=== PATIENT | female | born 1975 | race African-American/Black ===

== ENCOUNTER 2016-06-16 17:46 | Inpatient (IN) | payer OTHER ==
[~2016-06-16] VITALS: Ht 177.8 cm; Wt 167.7 kg
[~2016-06-16 17:46] MED LIST: ALDACTONE 25MG25 M1 PO; CARVEDILOL; CEPHALEXIN500 M1 PO; FEOSOL65 MG PO; FERRATE325 MG PO; HCTZ 25MG TAB25 MG PO; HCTZ 25MG25 MG PO; LASIX 20MG TABL20 MG PO; LOPRESSOR 550 MG/TAB PO; LORTAB 5/500 501 TAB PO; LORTAB 7.5/5001 TAB PO; MICARDIS HCT 251 TAB PO; MICARDIS40 MG PO; MICARDIS80 MG PO; NAPROSYN500 MG PO; NO HOME MEDICATIONS; NORCO 325 MG-51 TAB PO; NORVASC 5MG5 MG/TAB PO; PHENERGAN W/CO120 ML PO; SAXENDA6 MG/ML SQ; SUDAFED30 MG PO; SYNTHROID0.05 MG/TA PO; TUSS PO; VICODIN 5/5001 UDTAB PO; XOPENEX HF0.045 MG/A IH; ZITHROMAX 250M250 MG PO; ZITHROMAX Z PA250 MG PO
[2016-06-16] MEDS ORDERED: MULTIPLE VITAMI1 CAP PO (18:03)
[2016-06-16] MEDS ORDERED: NORCO 325 MG-7.1 TAB PO (18:04)
[2016-06-16 20:22] LABS: BASO # 0.1 (0.0-0.2); BASO % 0.4 % (0.0-2.0); EOS # 0.3 (0.0-0.7); EOS % 1.9 % (0-4.0); GRAN % 68.2 % (42.2-75.2); LYMPH # 2.7 (1.2-3.4); LYMPH % 20.6 % (20.0-51.0); MEAN CELL VOLUME 81 fl (80.0-100.0); MEAN CORPUSCULAR HGB CONC 33 g/dl (33.0-37.0); MONO # 1.1 (0.1-0.6); MONO % 8.6 % (1.7-9.3); PLATELET COUNT 368 K/mm3 (130-400); RED BLOOD COUNT 4.04 M/mm3 (4.10-5.30); REDCELL DISTRIBUTION WIDTH-CV 13.6 % (11.5-14.5); WHITE BLOOD COUNT 13.2 K/mm3 (4.8-10.8)
[2016-06-16 20:27] LABS: PH 5 (5-8); SQUAMOUS EPITHELIAL 20-50 /hpf; URINE APPEARANCE Cloudy; URINE BACTERIA Rare /hpf; URINE BILIRUBIN Negative (NEGATIVE); URINE BLOOD 3+ (NEGATIVE); URINE COLOR Amber; URINE GLUCOSE Negative (NEGATIVE); URINE KETONE Trace (NEGATIVE); URINE RBC 20-50 /hpf; URINE UROBILINOGEN Negative (NEGATIVE)
[2016-06-16 20:31] LABS: HEMATOCRIT 32.7 % (37.0-47.0); HEMOGLOBIN 10.8 g/dl (12.5-16.0); MEAN CORPUSCULAR HEMOGLOBIN 27 pg (27.0-31.0)
[2016-06-16 20:36] LABS: ADJUSTED CALCIUM 9.9 mg/dL (8.4-10.2); ALANINE AMINOTRANSFERASE 46 U/L (9-52); ALBUMIN 4.2 gm/dL (3.5-5.0); ALKALINE PHOSPHATASE 161 U/L (50-136); ANION GAP 15 mmol/L (7-16); BILIRUBIN,TOTAL 0.9 mg/dL (0.0-1.0); BLOOD UREA NITROGEN 20 mg/dL (7-17); CALCIUM 10.1 mg/dL (8.4-10.2); CARBON DIOXIDE 24 mmol/L (22-30); CHLORIDE 98 mmol/L (98-107); CREATININE, serum 1.33 mg/dL (0.52-1.25); GLUCOSE 108 mg/dL (74-106); SODIUM 136 mmol/L (137-145); TOTAL PROTEIN 8.9 gm/dL (6.4-8.2)
[2016-06-16 20:51] LABS: TROPONIN-I < 0.012 ng/mL (0.000-0.034)
[2016-06-16 21:35] LABS: C-REACTIVE PROTEIN 18.2 mg/dL (0.0-0.9)
[2016-06-16 23:30] VITALS: BP 128/56; PULSE 85; TEMP 98.5
[2016-06-17 05:55] VITALS: BP 109/52; PULSE 91; TEMP 98.3
[2016-06-17 09:13] VITALS: BP 107/52; PULSE 89; TEMP 98.5
[2016-06-17 13:17] VITALS: BP 97/40; PULSE 70; TEMP 97.9
[2016-08-05] MEDS ORDERED: BIOTIN10000 MC1 PO (15:55)
[2016-08-05] MEDS ORDERED: VITAMIN D31000 IU PO (15:56)
[2016-12-23] MEDS ORDERED: SYNTHROID0.05 MG/TA PO (16:11)
== END 2016-06-17 19:00 | disposition home or self-care (01) | DRG 392 ==
LOC: COL.ER 17:46 → SURG 22:17
PROVIDERS: Emergency Medicine
DX: R10.12 Left upper quadrant pain (principal); Z68.43 Body mass index [BMI] 50.0-59.9, adult; E66.01 Morbid (severe) obesity due to excess calories; Z98.84 Bariatric surgery status; I10 Essential (primary) hypertension; R11.2 Nausea with vomiting, unspecified
CPT/HCPCS: J1170; J1650; J1885; J2405; J2543; J7030; J7050; Q9967

== ENCOUNTER → 2016-06-24 | Outpatient (CLI) | payer OTHER ==
[~2016-06-24] VITALS: Ht 177.8 cm; Wt 166.0 kg
[~2016-06-24] MED LIST changes: +BIOTIN10000 MC1 PO; +MULTIPLE VITAMI1 CAP PO; +NORCO 325 MG-7.1 TAB PO; +OMNICEF 300MG300 MG PO; +VITAMIN D31000 IU PO; +ZOFRAN 4MG T4 MG/TAB PO
[2016-06-24 15:29] VITALS: BP 151/75; PULSE 50
[2016-06-24 15:53] VITALS: BP 151/75; PULSE 50
== END ==
LOC: LIGHT 14:17
DX: Z98.84 Bariatric surgery status (principal); Z68.43 Body mass index [BMI] 50.0-59.9, adult

== ENCOUNTER → 2016-08-05 | Outpatient (CLI) | payer OTHER ==
[~2016-08-05] VITALS: Ht 177.8 cm; Wt 160.8 kg
[2016-08-05 15:56] VITALS: BP 164/92; PULSE 48
[2016-08-05 16:16] VITALS: BP 164/92; PULSE 48
== END ==
LOC: LIGHT 09:35
DX: Z98.84 Bariatric surgery status (principal); E03.8 Other specified hypothyroidism; I10 Essential (primary) hypertension; E66.01 Morbid (severe) obesity due to excess calories; Z68.43 Body mass index [BMI] 50.0-59.9, adult

== ENCOUNTER 2016-09-19 06:40 | Emergency (ER) | payer OTHER ==
[~2016-09-19] VITALS: Ht 177.8 cm; Wt 154.1 kg
[~2016-09-19 06:40] MED LIST changes: -OMNICEF 300MG300 MG PO; -ZOFRAN 4MG T4 MG/TAB PO
[2016-09-19 06:43] VITALS: TEMP 100.5
[2016-09-19 07:20] LABS: PH 6 (5-8); SQUAMOUS EPITHELIAL 0-2 /hpf; URINE APPEARANCE Clear; URINE BACTERIA Rare /hpf; URINE BILIRUBIN Negative (NEGATIVE); URINE BLOOD 3+ (NEGATIVE); URINE COLOR Yellow; URINE GLUCOSE Negative (NEGATIVE); URINE KETONE Negative (NEGATIVE); URINE RBC 20-50 /hpf; URINE UROBILINOGEN Negative (NEGATIVE)
[2016-09-19 07:51] LABS: ADJUSTED CALCIUM 8.9 mg/dL (8.4-10.2); ALBUMIN 4.6 gm/dL (3.5-5.0); C-REACTIVE PROTEIN 3.6 mg/dL (0.0-0.9); CALCIUM 9.4 mg/dL (8.4-10.2); CREATININE, serum 0.93 mg/dL (0.52-1.25); POTASSIUM 4.1 mmol/L (3.4-5.0); TOTAL PROTEIN 8.9 gm/dL (6.4-8.2)
[2016-09-19 08:17] LABS: BASO # 0.1 (0.0-0.2); BASO % 0.5 % (0.0-2.0); EOS # 0.4 (0.0-0.7); EOS % 3.2 % (0-4.0); GRAN # 7.4 (1.4-6.5); LYMPH # 2.4 (1.2-3.4); LYMPH % 22.1 % (20.0-51.0); MEAN CELL VOLUME 81 fl (80.0-100.0); MEAN CORPUSCULAR HGB CONC 32 g/dl (33.0-37.0); MEAN PLATELET VOLUME 11.2 fl (7.4-10.4); MONO # 0.7 (0.1-0.6); PLATELET COUNT 303 K/mm3 (130-400); RED BLOOD COUNT 3.92 M/mm3 (4.10-5.30); REDCELL DISTRIBUTION WIDTH-CV 15.7 % (11.5-14.5)
[2016-09-19 08:18] LABS: HEMATOCRIT 31.9 % (37.0-47.0); HEMOGLOBIN 10.3 g/dl (12.5-16.0); MEAN CORPUSCULAR HEMOGLOBIN 26 pg (27.0-31.0)
[2016-09-19] MEDS ORDERED: OMNICEF 300MG300 MG PO (09:29)
[2016-09-19] MEDS ORDERED: ZOFRAN 4MG T4 MG/TAB PO (09:29)
[2016-09-19] MEDS ORDERED: NORCO 325 MG-51 TAB PO (09:29)
[2016-09-19 09:55] VITALS: BP 155/99; PULSE 62
[2016-12-23] MEDS ORDERED: SYNTHROID0.05 MG/TA PO (16:11)
== END 2016-09-19 09:55 | disposition home or self-care (01) ==
LOC: COL.ER 06:40
PROVIDERS: Emergency Medicine
DX: N39.0 Urinary tract infection, site not specified (principal); R31.9 Hematuria, unspecified; I10 Essential (primary) hypertension
CPT/HCPCS: J2270; J2405; J7030; Q9967

== ENCOUNTER → 2016-12-23 | Outpatient (CLI) | payer OTHER ==
[~2016-12-23] VITALS: Ht 177.8 cm; Wt 144.9 kg
[~2016-12-23] MED LIST changes: +OMNICEF 300MG300 MG PO; +ZOFRAN 4MG T4 MG/TAB PO
[2016-12-23 16:11] VITALS: BP 150/80; PULSE 64
== END ==
LOC: LIGHT 10-14 14:41
DX: I10 Essential (primary) hypertension (principal); E03.9 Hypothyroidism, unspecified; E66.01 Morbid (severe) obesity due to excess calories; Z68.42 Body mass index [BMI] 45.0-49.9, adult; Z71.3 Dietary counseling and surveillance; M17.0 Bilateral primary osteoarthritis of knee

== ENCOUNTER 2017-06-22 17:34 | Emergency (ER) | payer OTHER ==
[~2017-06-22] VITALS: Ht 177.8 cm; Wt 143.2 kg
[~2017-06-22 17:34] MED LIST changes: +FLEXERIL 1010 MG/TAB PO
[2017-06-22 17:38] VITALS: TEMP 978.9
[2017-06-22 18:36] LABS: COLLECTION METHOD CLEAN CATCH
[2017-06-22 18:42] LABS: HEMATOCRIT 37.4 % (37.0-47.0); HEMOGLOBIN 12.3 g/dl (12.5-16.0); MEAN CELL VOLUME 85 fl (80.0-100.0); MEAN CORPUSCULAR HEMOGLOBIN 28 pg (27.0-31.0); MEAN CORPUSCULAR HGB CONC 33 g/dl (33.0-37.0); PLATELET COUNT 297 K/mm3 (130-400); REDCELL DISTRIBUTION WIDTH-CV 13.2 % (11.5-14.5)
[2017-06-22 18:54] LABS: MUCOUS Present /lpf; PH 5 (5-8); URINE APPEARANCE Hazy; URINE BACTERIA None Seen /hpf; URINE BILIRUBIN Negative (NEGATIVE); URINE BLOOD Negative (NEGATIVE); URINE COLOR Yellow; URINE GLUCOSE Negative (NEGATIVE); URINE KETONE Negative (NEGATIVE); URINE LEUKOCYTE ESTERASE Negative (NEGATIVE); URINE NITRATE Negative (NEGATIVE); URINE PROTEIN(semi-quant) 1+ (NEGATIVE); URINE UROBILINOGEN Negative (NEGATIVE)
[2017-06-22 19:33] LABS: ALBUMIN 3.9 gm/dL (3.5-5.0); BILIRUBIN,TOTAL 0.3 mg/dL (0.0-1.0); CALCIUM 9.2 mg/dL (8.4-10.2); CREATININE, serum 0.92 mg/dL (0.52-1.25); POTASSIUM 3.7 mmol/L (3.4-5.0); TOTAL PROTEIN 7.5 gm/dL (6.4-8.2)
[2017-06-22 20:24] VITALS: BP 161/86; PULSE 85
[2017-06-22 20:42] LABS: BAND 1 % (0-10); BASOPHIL 2 % (0-2); EOSINOPHIL 1 % (0-4); LYMPHOCYTE 40 % (20.0-51.0); NEUTROPHILS 50 % (42.0-75.2); PLATELET ESTIMATE NORMAL (NORMAL)
== END 2017-06-22 20:25 | disposition home or self-care (01) ==
LOC: COL.ER 17:34
PROVIDERS: Emergency Medicine
DX: K29.70 Gastritis, unspecified, without bleeding (principal); Z90.49 Acquired absence of other specified parts of digestive tract
CPT/HCPCS: J2405; J2550; J7030; J7050; Q9967

== ENCOUNTER 2017-12-25 23:41 | Emergency (ER) | payer OTHER ==
[~2017-12-25] VITALS: Ht 177.8 cm; Wt 143.2 kg
[2017-12-25 23:49] VITALS: TEMP 98.1
[2017-12-26 00:41] LABS: BASO % 0.5 % (0.0-2.0); EOS # 0.3 (0.0-0.7); EOS % 3.8 % (0-4.0); GRAN # 3.5 (1.4-6.5); GRAN % 44.5 % (42.2-75.2); HEMOGLOBIN 11.8 g/dl (12.5-16.0); LYMPH # 3.5 (1.2-3.4); LYMPH % 43.9 % (20.0-51.0); MEAN CELL VOLUME 83 fl (80.0-100.0); MEAN CORPUSCULAR HEMOGLOBIN 28 pg (27.0-31.0); MEAN CORPUSCULAR HGB CONC 34 g/dl (33.0-37.0); MEAN PLATELET VOLUME 10.3 fl (7.4-10.4); MONO # 0.6 (0.1-0.6); MONO % 7.2 % (1.7-9.3); PLATELET COUNT 308 K/mm3 (130-400); RED BLOOD COUNT 4.23 M/mm3 (4.10-5.30); REDCELL DISTRIBUTION WIDTH-CV 13.2 % (11.5-14.5)
[2017-12-26 00:42] LABS: HEMATOCRIT 34.9 % (37.0-47.0)
[2017-12-26 00:51] LABS: ALBUMIN 4.2 gm/dL (3.5-5.0); BILIRUBIN,TOTAL 0.3 mg/dL (0.0-1.0); CALCIUM 9.5 mg/dL (8.4-10.2); CREATININE, serum 1.04 mg/dL (0.52-1.25); POTASSIUM 3.7 mmol/L (3.4-5.0); TOTAL PROTEIN 8.2 gm/dL (6.4-8.2)
[2017-12-26 01:21] LABS: THYROID STIMULATING HORMONE 2.8 uIU/mL (0.465-4.680)
[2017-12-26 01:41] LABS: COLLECTION METHOD CLEAN CATCH
[2017-12-26 01:48] LABS: MUCOUS Present /lpf; PH 5 (5-8); URINE APPEARANCE Cloudy; URINE BACTERIA Many /hpf; URINE BILIRUBIN Negative (NEGATIVE); URINE BLOOD Negative (NEGATIVE); URINE COLOR Yellow; URINE GLUCOSE Negative (NEGATIVE); URINE KETONE Negative (NEGATIVE); URINE LEUKOCYTE ESTERASE Negative (NEGATIVE); URINE NITRATE Positive (NEGATIVE); URINE PROTEIN(semi-quant) Negative (NEGATIVE); URINE RBC 0-2 /hpf; URINE UROBILINOGEN Negative (NEGATIVE)
[2017-12-26 01:57] LABS: TRICYCLIC ANTIDEPRESS URINE NEGATIVE
[2017-12-26] MEDS ORDERED: NORVASC 5MG5 MG/TAB PO (04:02)
[2017-12-26] MEDS ORDERED: PRINZIDE 12.5 M1 TAB PO (04:02)
[2017-12-26 04:25] VITALS: BP 172/92; PULSE 56
== END 2017-12-26 04:25 | disposition home or self-care (01) ==
LOC: COL.ER 23:41
PROVIDERS: Emergency Medicine
DX: I10 Essential (primary) hypertension (principal); E66.9 Obesity, unspecified; Z68.42 Body mass index [BMI] 45.0-49.9, adult
CPT/HCPCS: J0780; J1200; J7030

== ENCOUNTER 2019-03-08 13:32 | Outpatient (RCR) | payer OTHER ==
[~2019-03-08 13:32] MED LIST changes: +PRINZIDE 12.5 M1 TAB PO
== END 2019-06-06 | disposition home or self-care (01) ==
LOC: WSOH
DX: Z77.21 Contact with and (suspected) exposure to potentially hazardous body fluids (principal); I10 Essential (primary) hypertension; E03.9 Hypothyroidism, unspecified; F41.9 Anxiety disorder, unspecified; Z90.49 Acquired absence of other specified parts of digestive tract; Y99.0 Civilian activity done for income or pay

== ENCOUNTER 2019-08-21 20:07 | Emergency (ER) | payer SELFPAY ==
[~2019-08-21] VITALS: Ht 177.8 cm; Wt 127.3 kg
[2019-08-21 20:13] VITALS: TEMP 98.4
[2019-08-21] MEDS ORDERED: TUSS PO (22:12)
[2019-08-21 22:33] VITALS: BP 177/111; PULSE 71
== END 2019-08-21 22:33 | disposition home or self-care (01) ==
LOC: COL.ER 20:07
DX: J06.9 Acute upper respiratory infection, unspecified (principal); I10 Essential (primary) hypertension; E03.9 Hypothyroidism, unspecified; Z90.89 Acquired absence of other organs; Z98.51 Tubal ligation status

== ENCOUNTER → 2020-02-15 | Outpatient (CLI) | payer SELFPAY | LOC: ZCOL.LAB 16:21 | DX: J06.9 Acute upper respiratory infection, unspecified (principal); Z20.828 Contact with and (suspected) exposure to other viral communicable diseases ==

== ENCOUNTER → 2020-07-04 | Outpatient (CLI) | payer OTHER | LOC: COL.RAD 12:30 | DX: R10.9 Unspecified abdominal pain (principal); Z90.49 Acquired absence of other specified parts of digestive tract; Z98.84 Bariatric surgery status | CPT/HCPCS: Q9967 ==

== ENCOUNTER 2020-09-22 14:57 | Emergency (ER) | payer OTHER ==
[~2020-09-22] VITALS: Ht 177.8 cm; Wt 144.5 kg
[2020-09-22 15:07] VITALS: TEMP 96.9
[2020-09-22 16:03] LABS: COLLECTION METHOD CLEAN CATCH
[2020-09-22 16:10] LABS: PH 7 (5-8); SQUAMOUS EPITHELIAL 0-2 /hpf; URINE APPEARANCE Clear; URINE BACTERIA Rare /hpf; URINE BILIRUBIN Negative (NEGATIVE); URINE BLOOD Negative (NEGATIVE); URINE COLOR Colorless; URINE GLUCOSE Negative (NEGATIVE); URINE KETONE Negative (NEGATIVE); URINE LEUKOCYTE ESTERASE Negative (NEGATIVE); URINE NITRATE Negative (NEGATIVE); URINE PROTEIN(semi-quant) Negative (NEGATIVE); URINE RBC 0-2 /hpf; URINE UROBILINOGEN Negative (NEGATIVE)
[2020-09-22 16:44] LABS: BASO # 0.1 (0.0-0.2); BASO % 0.6 % (0.0-2.0); EOS # 0.4 (0.0-0.7); EOS % 4.8 % (0-4.0); GRAN # 3.3 (1.4-6.5); GRAN % 42.9 % (42.2-75.2); HEMOGLOBIN 11.5 g/dl (12.5-16.0); LYMPH # 3.5 (1.2-3.4); LYMPH % 44.3 % (20.0-51.0); MEAN CELL VOLUME 84 fl (80.0-100.0); MEAN CORPUSCULAR HEMOGLOBIN 27 pg (27.0-31.0); MEAN CORPUSCULAR HGB CONC 32 g/dl (33.0-37.0); MEAN PLATELET VOLUME 10.2 fl (7.4-10.4); MONO # 0.6 (0.1-0.6); MONO % 7.3 % (1.7-9.3); PLATELET COUNT 314 K/mm3 (130-400); RED BLOOD COUNT 4.22 M/mm3 (4.10-5.30); REDCELL DISTRIBUTION WIDTH-CV 13.6 % (11.5-14.5)
[2020-09-22 16:45] LABS: HEMATOCRIT 35.5 % (37.0-47.0)
[2020-09-22 17:07] LABS: ALANINE AMINOTRANSFERASE 22 U/L (4-34); ALBUMIN 4.4 gm/dL (3.5-5.0); ALKALINE PHOSPHATASE 138 U/L (50-136); ANION GAP 8 mmol/L (7-16); AST,SGOT 30 U/L (15-37); BILIRUBIN,TOTAL 0.2 mg/dL (0.0-1.0); BLOOD UREA NITROGEN 16 mg/dL (7-17); CALCIUM 9.5 mg/dL (8.4-10.2); CARBON DIOXIDE 29 mmol/L (22-30); CHLORIDE 101 mmol/L (98-107); CREATININE, serum 0.91 (0.52-1.25); GLUCOSE 89 mg/dL (74-106); SODIUM 138 mmol/L (137-145); TOTAL PROTEIN 9.1 gm/dL (6.4-8.2)
[2020-09-22 17:20] LABS: TROPONIN-I < 0.012 ng/mL (0.000-0.035)
[2020-09-22 17:39] VITALS: BP 171/92; PULSE 60
== END 2020-09-22 17:42 | disposition home or self-care (01) ==
LOC: COL.ER 14:57
PROVIDERS: Nurse Practitioner Primary Care
DX: I10 Essential (primary) hypertension (principal); E66.01 Morbid (severe) obesity due to excess calories; E03.9 Hypothyroidism, unspecified; Z79.890 Hormone replacement therapy; Z68.42 Body mass index [BMI] 45.0-49.9, adult

== ENCOUNTER 2021-05-31 13:29 | Outpatient (CLI) | payer OTHER ==
[2021-05-31] VITALS (8 sets, daily range): BP systolic 161–182; BP diastolic 106–127; PULSE 54–61; TEMP 99.1
[~2021-05-31] VITALS: Ht 177.8 cm; Wt 145.0 kg
[2021-05-31] MEDS ORDERED: PRINZIDE 12.5 M1 TA1 PO (14:23)
[2021-05-31] MEDS ORDERED: TESSALON P100 MG/CAP PO (14:25)
--- NOTE | 2021-05-31 15:30 | NUR ---
Elevated BP readings discussed with pt. She is encouraged to continue to monitor at home and discuss with her physcian as all diastolic readings have been over 100 today. She expresses understanding. INT DC'd with catheter intact. She is escorted out to ED entrance with steady gait.
== END 2021-05-31 15:30 | disposition home or self-care (01) ==
LOC: EUO 13:29
DX: U07.1 COVID-19 (principal); I51.9 Heart disease, unspecified
CPT/HCPCS: M0245

== ENCOUNTER 2023-09-10 15:32 | Outpatient (RCR) | payer OTHER ==
[~2023-09-10 15:32] MED LIST changes: +PRINZIDE 12.5 M1 TA1 PO; +TESSALON P100 MG/CAP PO
== END 2023-09-14 | disposition home or self-care (01) ==
LOC: WSPT
DX: M54.2 Cervicalgia (principal); M25.512 Pain in left shoulder

== ENCOUNTER 2024-04-02 22:18 | Emergency (ER) | payer BC ==
[~2024-04-02] VITALS: Ht 177.8 cm; Wt 145.5 kg
[2024-04-02 22:38] VITALS: TEMP 98.7
[2024-04-02] MEDS ORDERED: Sucralfate Susp 1 GM/10 ML UD PO ONE (23:00)
[2024-04-02 23:22] LABS: COLLECTION METHOD CLEAN CATCH
[2024-04-02 23:36] LABS: BASO # 0.1 K/mm3 (0.0-0.2); BASO % 0.8 % (0.0-2.0); EOS # 0.3 K/mm3 (0.0-0.7); GRAN # 4.3 K/mm3 (1.4-6.5); GRAN % 50.4 % (42.2-75.2); HEMOGLOBIN 12.1 g/dl (12.5-16.0); LYMPH # 3.2 K/mm3 (1.2-3.4); LYMPH % 37.1 % (20.0-51.0); MEAN CELL VOLUME 84 fl (80.0-100.0); MEAN CORPUSCULAR HEMOGLOBIN 28 pg (27-31); MEAN CORPUSCULAR HGB CONC 33 g/dl (33.0-37.0); MEAN PLATELET VOLUME 10.3 fl (7.4-10.4); MONO # 0.6 K/mm3 (0.1-0.6); MONO % 7.5 % (1.7-9.3); PLATELET COUNT 378 K/mm3 (130-400); RED BLOOD COUNT 4.34 M/mm3 (4.10-5.30); REDCELL DISTRIBUTION WIDTH-CV 13.9 % (11.5-14.5)
[2024-04-02 23:37] LABS: HEMATOCRIT 36.5 % (37.0-47.0)
[2024-04-02 23:42] LABS: PH 5.5 (5.0-8.5); URINE APPEARANCE CLEAR (CLEAR/HAZY); URINE BLOOD TRACE (NEGATIVE); URINE COLOR YELLOW (YELLOW); URINE GLUCOSE NEGATIVE (NEGATIVE); URINE KETONE NEGATIVE (NEGATIVE); URINE NITRATE NEGATIVE (NEGATIVE); URINE PROTEIN(semi-quant) NEGATIVE (NEGATIVE)
[2024-04-02 23:44] LABS: ALANINE AMINOTRANSFERASE 22 U/L (0-55); ALKALINE PHOSPHATASE 123 U/L (40-150); ANION GAP 12 mmol/L (7-16); AST,SGOT 25 U/L (5-34); BILIRUBIN,TOTAL 0.3 mg/dL (0.2-1.2); BLOOD UREA NITROGEN 35 mg/dL (10-20); CALCIUM 10.2 mg/dL (8.4-10.2); CHLORIDE 107 mEq/L (98-107); CREATININE, serum 2.14 mg/dL (0.57-1.11); GLUCOSE 99 mg/dL (70-99); LIPASE 45 U/L (8-78); MAGNESIUM 2.3 mg/dL (1.6-2.6); POTASSIUM 4.2 mEq/L (3.5-4.5); SODIUM 139 mEq/L (136-145); TOTAL PROTEIN 8.5 g/dl (6.2-8.1)
[2024-04-02 23:52] LABS: TROPONIN-I < 0.010 ng/mL (0.00-0.033)
[2024-04-03] MEDS ORDERED: Morphine 4 MG/ML VIAL IV ONE (01:15)
[2024-04-03] MEDS ORDERED: Dicyclomine 10 MG/ML 2 ML VIAL IM ONE (02:15)
[2024-04-03] MEDS ORDERED: BENTYL 20MG20 MG/TAB PO (03:48)
[2024-04-03] MEDS ORDERED: PEPCID40 MG PO (03:48)
[2024-04-03 03:57] VITALS: BP 126/78; PULSE 57
== END 2024-04-03 03:56 | disposition home or self-care (01) ==
LOC: COL.ER 22:18
PROVIDERS: Emergency Medicine
DX: R10.12 Left upper quadrant pain (principal)
CPT/HCPCS: J0500; J2270